=== PATIENT | female | born 1970 | race Caucasian/White ===

== ENCOUNTER 2019-12-31 11:56 | Emergency (ER) | payer OTHER, SELFPAY ==
[~2019-12-31 11:56] MED LIST: Iopamidol-370 76% 500 ML 1 ML ONE
[2019-12-31] MEDS ORDERED: Ketorolac Tromethamine 30 MG/ML VIAL ONE ×2 (12:26→14:04)
[2019-12-31] MEDS ORDERED: Ondansetron PF 4 MG/2 ML Vial ONE (12:28)
[2019-12-31 13:07] LABS: #Lymphocytes 0.6 thou/uL (1.20-3.40); #Monocytes 0.6 thou/uL (0.11-0.59); #Neutrophils 13.4 thou/uL (1.40-6.50); %Eosinophils 0.1 % (0.0-10.0); %Lymphocytes 3.8 % (21.0-51.0); %Monocytes 4.2 % (0.0-10.0); %Neutrophils 91.8 % (42.0-75.0); Hemoglobin 13.5 g/dL (12.0-16.0); Mean Corpuscular HGB CONC 32.3 g/dL (32.0-36.0); Mean Corpuscular Hemoglobin 30.2 pg (27.0-31.0); Mean Corpuscular Volume 93.5 fL (78.0-98.0); Mean Platelet Volume 7.3 fL (7.4-10.4); Platelet Count 225 thou/uL (130-400); RBC Distribution Width 11.4 % (11.5-14.5); Red Blood Cell (RBC) Count 4.46 mill/uL (4.20-5.40); White Blood Cell (WBC) Count 14.6 thou/uL (4.8-10.8)
[2019-12-31 13:19] LABS: BHCG - Serum Negative (NEGATIVE); Pregs Control Background? CLEAR/WHITE (CLR/WHITE); Pregs Control Bar Appear? YES (CONTROL BAR)
[2019-12-31 13:27] LABS: ALT (SGPT) 15 U/L (8-55); AST (SGOT) 14 U/L (5-34); Albumin 4.2 g/dL (3.5-5.0); Alkaline Phosphatase 73 U/L (40-110); Anion Gap 13 mmol/L (10-20); BUN (Urea Nitrogen) 9 mg/dL (7.0-18.7); Bilirubin, Total 0.5 mg/dL (0.2-1.2); CK (CPK) 92 U/L (29-168); Calc. Creatinine Clearance 0 mL/min (70-130); Calcium 8.5 mg/dL (7.8-10.44); Carbon Dioxide 22 mmol/L (22-29); Chloride 103 mmol/L (98-107); Estimated GFR-MDRD 85; Globulin 2.5 g/dL (2.4-3.5); Glucose 102 mg/dL (70-105); Lipase 10 U/L (8-78); Potassium 3.5 mmol/L (3.5-5.1); Protein, Total 6.7 g/dL (6.0-8.3); Sodium 134 mmol/L (136-145)
[2019-12-31 13:37] LABS: Bilirubin Negative (Negative); Blood, Urine Negative (Negative); Clarity Clear (Clear); Glucose, Urine (Dipstick) Normal (Negative); Ketone, Urine Negative (Negative); Leukocyte Negative Leu/uL (Negative); Nitrite Negative (Negative); Protein, Urine (Dipstick) 10 mg/dL (Neg-Trace); Specific Gravity, Urine 1.022 (1.002-1.036); Urobilinogen Normal mg/dL (Less than 2)
--- NOTE | 2019-12-31 14:57 | CT ---
CT ANGIOGRAM THORAX WITH IV CONTRAST AND 3-D RECONSTRUCTIONS CLINICAL INDICATION: Elevated d-dimer in a patient with chest pain. Pain between the shoulder blades. Numbness both arms. COMPARISON: None FINDINGS: Pulmonary arteries: No filling defects are seen in the pulmonary arteries to suggest a pulmonary embo tequila. Aorta: The aorta is normal in caliber without evidence of an aortic dissection. Lungs: There is a circumscribed lucency measuring 8 mm in the right upper lobe laterally with promine nt adjacent groundglass opacity. But are likely related to a pneumatocele with adjacent parenchymal lung changes possibly representing either hemorrhage or infectious process. Findings could be related to posttraumatic pneumatocele in the appropriate clinical setting versus infectious process with subsequent development of a small pneumatocele. Lungs are otherwise clear. Mediastinum: There is no evidence of lymphadenopathy. Thyroid gland: Right lobe of thyroid gland is not visualized and may be surgically absent. There is q uestion of a small subcentimeter hypodense nodule left lobe of the thyroid gland. Osseous structures: Mild left convex curvature thoracic spine. Chest wall: Bilateral breast prostheses are visualized. Upper abdomen: A 4.8 cm hypodense cystic structure medial segment left hepatic lobe incompletely imag ed likely due to large hepatic cyst. A nonobstructing superior pole left renal calculus is present. There are hypodense lesions scattered within the visualized left kidney largest in the superior pole measuring 1.1 cm suggestive of renal cysts. A few tiny subcentimeter too small to characterize hypodense lesions are present. IMPRESSION: 1. Subcentimeter circumscribed lucency with surrounding patchy airspace and groundglass density in th e right upper lobe. Findings could be related to post traumatic pneumatocele and surrounding hemorrhage in the appropriate clinical setting. However, findings could be related to postinfectious pneumatocele with surrounding opacity secondary to infectious process/pneumonia. 2. No CT evidence for pulmonary embolus. 4. No obstructing left renal calculus. 3. Large incompletely imaged left hepatic lobe cyst. 5. Hypodense lesions left kidney most suggestive of cysts.
[2019-12-31] MEDS ORDERED: Azithromycin 500 MG VIAL ONE (15:20)
--- NOTE | 2019-12-31 15:31 | RAD ---
EXAM: CHEST ONE VIEW PORTABLE: 12/31/19 HISTORY: Chest pain. FINDINGS: Heart size is normal. The left lung is clear. There is a faint opacity overlying the right anterior f irst and second rib interspace region possibly a small area of pneumonia or an underlying nodule. No pleural effusion. IMPRESSION: Evidence for minimal focal opacification over the right upper lateral chest between the first and sec ond anterior rib interspace, possibly a small patch of pneumonia or pulmonary nodule. If the patient has symptoms of pneumonia, I would suggest treatment and short term follow-up in several weeks and if this abnormal density persists at that time, a follow-up chest CT scan should be considered. POS: OFF
[2019-12-31] MEDS ORDERED: cefTRIAXone\\ROCEPHIN 2 GM VIAL ONE (15:42)
[2019-12-31] MEDS ORDERED: traMADol HCl 50 MG TAB ONE (16:10)
[2020-01-01 12:24] LABS: SARS-CoV-2 MS2 Positive; SARS-CoV-2 N Gene Negative; SARS-CoV-2 S Gene Negative; SARS-CoV-2 by NAA Not Detected (NotDetected); SARS-CoV-2 orf1ab Negative
== END 2019-12-31 17:27 | disposition home or self-care (01) ==
LOC: ERS 11:56
DX: J18.9 Pneumonia, unspecified organism (principal); R91.8 Other nonspecific abnormal finding of lung field; G35 Multiple sclerosis; R07.9 Chest pain, unspecified; Z20.828 Contact with and (suspected) exposure to other viral communicable diseases
CPT/HCPCS: 36415; 71045; 71275; 80053; 81003; 82550; 83605; 83690; 84484; 84703; 85025; 85379; 87040; 87077; 87149; 87186; 87635; 93005; 96365; 96366; 96368; 96375; 96376; J0456; J0696; J1885; J2405; Q9967; U0003

== ENCOUNTER 2020-01-03 15:26 | Inpatient (IN) | payer SELFPAY ==
[2020-01-03 16:13] LABS: #Eosinphils 0.1 thou/uL (0.0-0.7); #Lymphocytes 1.1 thou/uL (1.20-3.40); #Monocytes 1.1 thou/uL (0.11-0.59); #Neutrophils 13.8 thou/uL (1.40-6.50); %Basophils 0.2 % (0.0-1.0); %Eosinophils 0.9 % (0.0-10.0); %Lymphocytes 6.7 % (21.0-51.0); %Monocytes 6.5 % (0.0-10.0); %Neutrophils 85.7 % (42.0-75.0); Mean Corpuscular HGB CONC 32.8 g/dL (32.0-36.0); Mean Corpuscular Hemoglobin 30.7 pg (27.0-31.0); Mean Corpuscular Volume 93.5 fL (78.0-98.0); Mean Platelet Volume 7.3 fL (7.4-10.4); Platelet Count 289 thou/uL (130-400); RBC Distribution Width 11.4 % (11.5-14.5); Red Blood Cell (RBC) Count 3.92 mill/uL (4.20-5.40); White Blood Cell (WBC) Count 16.1 thou/uL (4.8-10.8)
[2020-01-03 16:33] LABS: ALT (SGPT) 39 U/L (8-55); AST (SGOT) 36 U/L (5-34); Albumin 3.4 g/dL (3.5-5.0); Alkaline Phosphatase 123 U/L (40-110); Anion Gap 12 mmol/L (10-20); BUN (Urea Nitrogen) 8 mg/dL (7.0-18.7); Bilirubin, Total 0.4 mg/dL (0.2-1.2); Calc. Creatinine Clearance 0 mL/min (70-130); Calcium 9.1 mg/dL (7.8-10.44); Carbon Dioxide 21 mmol/L (22-29); Chloride 108 mmol/L (98-107); Estimated GFR-MDRD Greater than 90; Globulin 2.9 g/dL (2.4-3.5); Glucose 105 mg/dL (70-105); Potassium 3.9 mmol/L (3.5-5.1); Protein, Total 6.3 g/dL (6.0-8.3); Sodium 137 mmol/L (136-145)
[2020-01-03] MEDS ORDERED: Meropenem 1 GM in Sodium Chloride 0.9% 100 ML IVPB SCH (18:00)
[2020-01-03] MEDS ORDERED: MEROPENEM 1 GM/50 ML 1 GM in Premix Bag 1 BAG IVPB SCH ×2 (18:15→22:00)
--- NOTE | 2020-01-03 18:31 | CT ---
CT ABDOMEN AND PELVIS WITH IV CONTRAST: 01/03/20 PROVIDED CLINICAL HISTORY: Nausea, bloating and abdominal pain. FINDINGS: No comparisons. There is mild right pleural fluid and patchy consolidation of the right lung base that may reflect vo lume loss or infiltrate. These findings appear new with respect to the CT examination of the chest da lesly 12/31/19. There is a large simple cyst involving the left hepatic lobe. There is a solid, enhancing mass involv ing the anterior segment of the right hepatic lobe measuring about 3.6 cm. Hypodensities are seen inv olving the kidneys, the larger of which are compatible with cysts and the smaller of which are too sm all to definitively characterize but likely also reflect cysts. There is a 3 mm nonobstructing superi or pole left renal calculus. The spleen, pancreas, and adrenal glands appear unremarkable. There is mild free pelvic fluid. Evaluation of the pelvis is limited due to fluid filled small bowel and lack of enteric contrast material. There is an approximately 6 cm cystic mass in the posterior pe lvis suspected seen to best advantage on axial image 74 and coronal image 76. There is no bowel dilatation, inflammatory fat stranding or free air apparent. There is conspicuous c olonic fecal retention. The gallbladder is decompressed. The appendix is not distinctly identified, w ithout secondary evidence for acute appendicitis. The osseous structures demonstrate no concerning lytic or blastic lesions. IMPRESSION: 1. Suspected 6 cm complex cystic pelvic mass. Correlation with pelvic ultrasound is recommended. 2. Mild free pelvic fluid. 3. 3.6 cm enhancing right hepatic lobe mass, incompletely characterized on the basis of this isa dy. Follow-up abdominal MRI is recommended for further characterization. 4. Partially visualized right pleural fluid and patchy right basilar air space disease, the latt er of which may reflect pneumonia. POS: LATOYA
--- NOTE | 2020-01-03 19:58 | RAD ---
PORTABLE CHEST: 01/03/20 PROVIDED CLINICAL HISTORY: Pneumonia. FINDINGS: Comparison 12/31/19. Cardiac and mediastinal silhouette is unchanged in appearance. There is prominent interval increase i n the degree of air space disease involving the right mid and upper lung zones with development of ri ght basilar air space disease. There is no pleural fluid or pneumothorax radiographically apparent. IMPRESSION: Prominent interval increase in right hemithoracic air space disease. POS: LATOYA
[2020-01-03] MEDS ORDERED: Acetaminophen 500 MG TAB ONE (20:15)
--- NOTE | 2020-01-03 20:19 | PDOC.HHP ---
Hospitalist HPI - History of Present Illness Cough History of Present Illness: Patient is a 49 year old female with PMH MS who presents to ED for positive blood cultures, pneumonia, cough. Patient presented here on thursday and was diagnosed with pneumonia, R cavitary lung lesion, she was discharged home and followed up today in pulmonary clinic. Patient was seen today by Dr Leary in pulmonary clinic, he noticed that patient had blood cultures drawn, 1/2 of which were positive for pseudomonas, patient referred to hospital. She reports symptoms about the same as before, complains of a productive cough which has turned bloody a few times.Here in ED, WBC 16, LFT somewhat elevated, she reported some upper abdomional pain so CT A/P performed and revealed 6cm complex cystic pelvic mass, free pelvic fluid, 3.6cm enhancing R hepatic lobe mass, R airspace disease observed, pelvic ultrasound and MRI abdomen recommended. CXR w/ increased R airspace disease BCX from 12/30 reviewed, 1/2 was P aeruginosa whipple susceptible. Due to extensive allergy history, patient given meropenem after new blood cultures collected, to be admitted for further workup. Hospitalist ROS - Review of Systems Constitutional: reports: weakness. denies: fever, chills, sweats, malaise, other Eyes: denies: pain, vision change, conjunctivae inflammation, eyelid inflammation, redness, other ENT: denies: ear pain, ear discharge, nose pain, nose discharge, nose congestion, mouth pain, mouth swelling, throat pain, throat swelling, other Respiratory: reports: cough, hemoptysis. denies: dry, shortness of breath, SOB with excertion, pleuritic pain, sputum, wheezing, other Cardiovascular: denies: chest pain, palpitations, orthopnea, paroxysmal noc. dyspnea, edema, light headedness, other Gastrointestinal: denies: nausea, vomiting, abdominal pain, diarrhea, constipation, melena, hematochezia, other Genitourinary: denies: dysuria, frequency, incontinence, hematuria, retention, other Musculoskeletal: denies: neck pain, shoulder pain, arm pain, back pain, hand pain, leg pain, foot pain, other Skin: denies: rash, lesions, hansa, bruising, other Neurological: denies: weakness, numbness, incoordination, change in speech, confusion, seizures, other All other systems reviewed; all pertinent +/- noted in HPI/Subj - Medication Medications: none Hospitalist History - Past Medical History Other Medical History: Venous insufficiency, multiple sclerosis - Past Surgical History Other Surgical History: thyroid surgery D&C hysterectomy tubal ligation and reversal - Family History Family History: reports: no pertinent history - Social History Smoking Status: Never smoker Alcohol: reports: None Drugs: reports: none - Exam General Appearance: NAD, awake alert Eye: PERRL, anicteric sclera ENT: normocephalic atraumatic, no oropharyngeal lesions, moist mucosa Neck: supple, symmetric, no JVD, no thyromegaly, no lymphadenopathy, no carotid bruit Heart: RRR, no murmur, no gallops, no rubs, normal peripheral pulses Respiratory - other findings: rales R sided upper more than lower, normal work of breathing Gastrointestinal: soft, non-distended, normal bowel sounds, no palpable masses, no hepatomegaly, no splenomegaly, no bruit Gastrointestinal - other findings: mild upper abdominal tenderness, no rebound or guarding Extremities: no cyanosis, no clubbing, no edema Skin: normal turgor, no lesions, no rashes Neurological: cranial nerve grossly intact, normal sensation to touch, no weakness, no focal deficits, no new deficit Musculoskeletal: normal tone, normal strength, no muscle wasting Psychiatric: normal affect, normal behavior, A&O x 3 Hospitalist Results - Labs Result Diagrams: 01/03/20 16:00 01/03/20 16:00 Lab results: WBC 16.1 thou/uL (4.8-10.8) H 01/03/20 16:00 Hgb 12.0 g/dL (12.0-16.0) 01/03/20 16:00 Hct 36.7 % (36.0-47.0) 01/03/20 16:00 MCV 93.5 fL (78.0-98.0) 01/03/20 16:00 Plt Count 289 thou/uL (130-400) 01/03/20 16:00 Neutrophils % 85.7 % (42.0-75.0) H 01/03/20 16:00 Sodium 137 mmol/L (136-145) 01/03/20 16:00 Potassium 3.9 mmol/L (3.5-5.1) 01/03/20 16:00 Chloride 108 mmol/L (98-107) H 01/03/20 16:00 Carbon Dioxide 21 mmol/L (22-29) L 01/03/20 16:00 BUN 8 mg/dL (7.0-18.7) 01/03/20 16:00 Creatinine 0.68 mg/dL (0.6-1.1) 01/03/20 16:00 Glucose 105 mg/dL (70-105) 01/03/20 16:00 Lactic Acid 0.8 mmol/L (0.5-2.2) 01/03/20 17:07 Calcium 9.1 mg/dL (7.8-10.44) 01/03/20 16:00 Total Bilirubin 0.4 mg/dL (0.2-1.2) 01/03/20 16:00 AST 36 U/L (5-34) H 01/03/20 16:00 ALT 39 U/L (8-55) 01/03/20 16:00 Alkaline Phosphatase 123 U/L (40-110) H 01/03/20 16:00 Serum Total Protein 6.3 g/dL (6.0-8.3) 01/03/20 16:00 Albumin 3.4 g/dL (3.5-5.0) L 01/03/20 16:00 Lipase Less than 4 U/L (8-78) L 01/03/20 15:57 Additional comment: VITAL SIGNS ThuJan 03, 2020 18:27 CRUZ Heath, Zeny BP: 118/83 Pulse: 96 Resp: 18 Temp: 99.7 (Oral) Pain: 4 O2 sat: 100 on (Room Air) Time: 01/03/2020 18:27. CT A/P IMPRESSION: 1. Suspected 6 cm complex cystic pelvic mass. Correlation with pelvic ultrasound is recommended. 2. Mild free pelvic fluid. 3. 3.6 cm enhancing right hepatic lobe mass, incompletely characterized on the basis of this isa dy. Follow-up abdominal MRI is recommended for further characterization. 4. Partially visualized right pleural fluid and patchy right basilar air space disease, the latt er of which may reflect pneumonia. POS: JMT labs, imaging reports, ed documentation reviewed Hospitalist H&P A/P - Plan Plan: Patient is a 49 year old female with PMH MS who presents to ED for positive blood cultures, pneumonia, cough. # community acquired cavitary pneumonia # sepsis secondary to pseudomonal bacteremia Patient presented here on thursday and was diagnosed with pneumonia, R cavitary lung lesion, followed up today in pulmonary clinic w/ Dr Leary, 04/14 BCX positive for pseudomonas, patient referred to hospital. Symptoms stable. WBC 16, LFT somewhat elevated, she reported some upper abdomional pain so CT A/P performed and revealed 6cm complex cystic pelvic mass, free pelvic fluid, 3.6cm enhancing R hepatic lobe mass, R airspace disease observed, pelvic ultrasound and MRI abdomen recommended. Was on azithromycin since 12/30 as outpatient - admit to floor - consult pulmonary, infectious diseases - BCX from 12/30 reviewed, 04/14 P aeruginosa whipple susceptible - continue meropenem, follow new blood cultures, allergy history noted # liver mass - MRI liver recommended as outpatient, refer at discharge # cystic pelvic mass - pelvic ultrasound with patient, recommended as outpatient, refer at discharge - both masses discussed with patient, offered inpatient workup but she prefers to wait till discharged, will need referrals # history of MS - noted, not on home medications, no significant long-term iss ues DVT/GI ppx Full code
--- NOTE | 2020-01-03 20:39 | HP ---
SUBJECTIVE: She is a 49-year-old female, who was seen in the office, referred by the ER for abnormal x-ray and CT of the chest. History is that she has had longstanding history of diagnosis of multiple sclerosis. For at least a year and a half, she has been having some shoulder pain, in fact she saw some pain physician in [place], was given some kind of shots without any relief. About a week ago, she developed further worsening of her shoulder pain, also some cough. In the ER, she coughed up some blood. X-ray was taken which shows a right upper lung infiltrate. CAT scan showed a cavitary infiltrate and she was referred here. She has had no further episode of hemoptysis. The shoulder pain is still persistent. She is still having body aches and pains. I was told in the ER she was given a shot of Rocephin. She was watched and given Zithromax. Today in the office, we checked the computer results. She has Pseudomonas aeruginosa in the blood culture, which is sensitive to pretty much all antibiotics. Additionally, she has multiple allergies. Her white count in the ER was 14,000 with a slight left shift. Lytes were normal. The patient is nonsmoker. No prior history of TB, pneumonia, or bronchial asthma. PAST MEDICAL HISTORY: Mainly associated with multiple sclerosis with mainly encephalopathy, unsteady gait from time to time. She sees a Dr. Sin in [place]. She takes no chronic medication. ALLERGIES: MULTIPLE; PENICILLIN, KEFLEX, VANCOMYCIN, LEVAQUIN, MORPHINE, HYDROCODONE. SHE TELLS ME MOST OF THE ANTIBIOTICS HAVE CAUSED A RASH. PREVIOUS SURGERIES: Appendix, tubal ligation, bilateral augmentation of breast, D and C, hysterectomy, thyroid surgery, oophorectomy. SOCIAL HISTORY: Unremarkable. 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 REVIEW OF SYSTEMS: Otherwise 10-points negative. PHYSICAL EXAMINATION: VITAL SIGNS: Sats 97% on room air , pulse 80, blood pressure CHEST: Reveals no wheezing, no crackles. CARDIAC: Normal S1, S2. No gallops. IMPRESSION: 1. Right upper lung cavitary infiltrate. 2. Pseudomonas aeruginosa. 3. History of multiple sclerosis, on no medications. I was concerned about the Pseudomonas in the blood. She has been admitted to the hospital for sepsis syndrome. We will repeat sputum culture, echocardiogram. Started meropenem and supportive care. Regarding the CT, chest x-ray abnormality, we will follow up with surveillance x-rays and a CT. Job ID: [id number]
[2020-01-03] MEDS ORDERED: cloNIDine 0.1 MG TAB PO PRN (21:14)
[2020-01-03] MEDS ORDERED: Labetalol HCl 100 MG/20 ML VIAL SLOW IVP PRN (21:14)
[2020-01-03] MEDS ORDERED: Ondansetron PF 4 MG/2 ML Vial IVP PRN (21:14)
[2020-01-03] MEDS ORDERED: hydrALAZINE 20 MG/ML VIAL SLOW IVP PRN (21:14)
[2020-01-03] MEDS ORDERED: Promethazine HCl 12.5 MG in Sodium Chloride 0.9% 50 ML IVPB PRN (21:14)
[2020-01-03] MEDS ORDERED: Electrolyte Replacement Protocol FS SCH (21:15)
[2020-01-04] MEDS: MEROPENEM 1 GM/50 ML 1 GM in Premix Bag 1 BAG IVPB SCH ×4 (00:07→23:48)
[2020-01-04 01:10] LABS: Bacteria/HPF None Seen HPF (None Seen); Bilirubin Negative (Negative); Blood, Urine 1+ (Negative); Clarity Clear (Clear); Glucose, Urine (Dipstick) Normal (Negative); Ketone, Urine Negative (Negative); Leukocyte Negative Leu/uL (Negative); Nitrite Negative (Negative); Protein, Urine (Dipstick) Negative (Neg-Trace); RBC/HPF 0-3 HPF (0-3); Specific Gravity, Urine 1.013 (1.002-1.036); Squamous Epithelial None Seen HPF (0-3); Urobilinogen Normal mg/dL (Less than 2); WBC/HPF 0-3 HPF (0-3)
[2020-01-04 06:00] LABS: #Eosinphils 0.2 thou/uL (0.0-0.7); #Lymphocytes 1.1 thou/uL (1.20-3.40); #Monocytes 0.8 thou/uL (0.11-0.59); #Neutrophils 9.7 thou/uL (1.40-6.50); %Basophils 0.1 % (0.0-1.0); %Eosinophils 1.5 % (0.0-10.0); %Monocytes 6.9 % (0.0-10.0); %Neutrophils 82.6 % (42.0-75.0); Hemoglobin 10.2 g/dL (12.0-16.0); Mean Corpuscular HGB CONC 31.4 g/dL (32.0-36.0); Mean Corpuscular Hemoglobin 29.1 pg (27.0-31.0); Mean Corpuscular Volume 92.7 fL (78.0-98.0); Mean Platelet Volume 7.2 fL (7.4-10.4); Platelet Count 237 thou/uL (130-400); RBC Distribution Width 11.5 % (11.5-14.5); White Blood Cell (WBC) Count 11.8 thou/uL (4.8-10.8)
[2020-01-04 06:17] LABS: Anion Gap 11 mmol/L (10-20); BUN (Urea Nitrogen) 7 mg/dL (7.0-18.7); Calc. Creatinine Clearance 6 mL/min (70-130); Calcium 7.9 mg/dL (7.8-10.44); Carbon Dioxide 19 mmol/L (22-29); Chloride 109 mmol/L (98-107); Estimated GFR-MDRD Greater than 90; Glucose 135 mg/dL (70-105); Magnesium 1.7 mg/dL (1.6-2.6); Potassium 3.5 mmol/L (3.5-5.1); Sodium 135 mmol/L (136-145)
[2020-01-04] MEDS: Acetaminophen 325 MG TAB PO PRN ×2 (06:56→14:24)
[2020-01-04] MEDS ORDERED: Magnesium 2 GM/50 ML 2 GM in Premix Bag 1 BAG IVPB SCH ×2 (07:00→08:45)
[2020-01-04] MEDS ORDERED: Potassium Chloride 20 MEQ TAB PO SCH (07:15)
[2020-01-04] MEDS: Polyethylene Glycol 3350 17 GM Packet PO SCH (08:44)
[2020-01-04] MEDS ORDERED: Famotidine 20 MG TAB PO SCH (09:00)
--- NOTE | 2020-01-04 12:17 | PRG ---
DATE OF SERVICE: 01/04/2020 SUBJECTIVE: This morning, she is awake, alert, and responsive. Denies shortness of breath. OBJECTIVE: VITAL SIGNS: Temperature 99, pulse 80, respiratory rate 20, sats 96% on room air, blood pressure 108/57. CHEST: Decreased breath sounds in right lung, left lung is unremarkable. CARDIAC: Normal S1, S2. No gallops. ABDOMEN: No masses. LABORATORY DATA: White count 11,000, H and H 10 and 32, platelet count is normal. Electrolytes are normal. Liver function slightly elevated, AST of 36. Urine is negative. Blood cultures so far negative. X-ray shows persistent right upper lung infiltrate. CT of abdomen was done because of abdominal pain, which showed a 6-cm complex cystic mass, small pelvic free fluid, 3.6 cm right hepatic lobe mass, and small pleural effusion. ASSESSMENT AND PLAN: Pseudomonas sepsis, right lung pneumonia, history of multiple sclerosis. Meropenem antibiotic has been initiated. Continue supportive care, PT, sputum being cultured. Await report of additional cultures. Job ID: [id number]
[2020-01-04] MEDS ORDERED: Naproxen 500 MG TAB PO PRN ×2 (15:18→15:23)
--- NOTE | 2020-01-04 15:22 | PDOC.HOSPP ---
- Subjective Encounter Date: 01/04/20 Subjective: The patient is complaining of cough, right shoulder pain, shortness of breath. - Objective Vital Signs & Weight: Vital Signs (12 hours) Temp Pulse Resp BP Pulse Ox 01/04/20 14:10 101.6 F H 01/04/20 11:48 98.5 F 92 20 110/74 98 01/04/20 07:56 99.6 F 88 20 108/57 L 96 01/04/20 05:00 99.7 F H 93 18 106/67 96 Weight Weight 142 lb I&O: 01/03/20 01/04/20 01/05/20 06:59 06:59 06:59 Intake Total 1750 295 Output Total 650 150 Balance 1100 145 Result Diagrams: 01/04/20 05:43 01/04/20 05:43 Hospitalist ROS - Medication Medications: Active Medications Generic Name Dose Route Start Last Admin Trade Name Freq PRN Reason Stop Dose Admin Acetaminophen 650 mg 01/03/20 21:14 01/04/20 14:24 Acetaminophen 325 Mg Tab PO 650 mg Q4H PRN Administration Headache/Fever/Mild Pain (1-3) Famotidine 20 mg 01/04/20 09:00 01/04/20 08:45 Famotidine 20 Mg Tab PO 20 mg BID HEMANT Administration Meropenem 1 gm/ Device 50 mls @ 100 mls/hr 01/03/20 23:59 01/04/20 09:04 IVPB 50 mls [id number] HEMANT Administration Polyethylene Glycol 17 gm 01/04/20 09:00 01/04/20 08:44 Polyethylene Glycol 3350 17 Gm Packet PO 17 gm DAILY HEMANT Administration Sodium Chloride 10 ml 01/04/20 09:00 01/04/20 08:45 Flush - Normal Saline 10 Ml Syringe IVF 10 ml Q12HR HEMANT Administration - Exam General Appearance: awake alert Neck: supple, no JVD Respiratory: no tachypnea, normal percussion Neurological: cranial nerve grossly intact, no new deficit Hosp A/P (1) Sepsis Code(s): A41.9 - SEPSIS, UNSPECIFIED ORGANISM Status: Acute (2) Cavitary pneumonia Code(s): J18.9 - PNEUMONIA, UNSPECIFIED ORGANISM; J98.4 - OTHER DISORDERS OF LUNG Status: Acute (3) Pseudomonas infection Code(s): A49.8 - OTHER BACTERIAL INFECTIONS OF UNSPECIFIED SITE Status: Acute (4) Multiple sclerosis Code(s): G35 - MULTIPLE SCLEROSIS Status: Acute - Plan Sepsis due to Pseudomonas cavitary pneumonia present on admission. Patient is currently on meropenem. Leukocytosis improving. She remains febrile. Continue IV hydration.
[2020-01-04 15:54] LABS: Potassium 3.7 mmol/L (3.5-5.1)
[2020-01-04] MEDS: Sodium Chloride 0.9% 1,000 ML IV SCH (16:03)
[2020-01-04] MEDS: Enoxaparin Sodium 40 MG/0.4 ML SYRINGE SC SCH (20:38)
[2020-01-04] MEDS: Cefepime 2 GM in Sodium Chloride 0.9% 100 ML IVPB SCH (20:39)
--- NOTE | 2020-01-05 | CON ---
DATE OF CONSULTATION: 01/04/2020 REASON: Pneumonia with bacteremia. HISTORY OF PRESENT ILLNESS: A 49-year-old, who has a history of multiple sclerosis, who is managed in [place] for the past few years. She received Copaxone and Betaseron, I think, but she has been fairly stable with mostly cognitive issues. No visual problems. She has some numbness and tingling in the extremities. No major urinary problems. A little bit of infections, but not very frequent. She also has cervical spine issues and has had injections by a pain specialist with corticosteroids. The last injection was in September. She also has recently had a dental infection for which antimicrobials were prescribed,3 or 4 weeks ago, and then 5 days before this admission, she develops acute illness with chills, general malaise, myalgias, comes to the emergency room and has an identifiable infiltrate with a central cavitation lesion. She was initially treated as just a simple community-acquired pneumonia, but blood cultures yielded Pseudomonas aeruginosa, she was brought back and admitted. She is still feeling unwell, but does not have as much pain as before or chills. No headaches. No visual symptoms, sore throat, odynophagia, or dysphagia. She started coughing after admission with hemoptysis actually. No back pain other than her usual C-spine pain, and she has this pain in the right shoulder blade, medial aspect, which is chronic. No abdominal pain, although now she has some abdominal symptoms. It is not clear what the nature of those are; it is kind of nonspecific, but centered in the periumbilical region and a sensation of fullness that she has, and it could be related to antimicrobial therapy. No genitourinary symptoms. No joint symptoms. No skin disorder. MEDICAL HISTORY: Multiple sclerosis with prior treatment with Copaxone and Betaseron, has not received treatment in a while because of the clinical stability. She has chronic back pain with steroid injections intermittently. Last was in September. She had a dental abscess, which was treated with antimicrobials 3 or 4 weeks ago, history of venous insufficiency and hypothyroidism. PAST SURGICAL HISTORY: Had hysterectomy and tubal ligation with reversal. SOCIAL HISTORY: Lives in [place] with . Never a smoker. No alcoholic beverage use. ALLERGIES: SHE HAS A HISTORY OF ALLERGIES WHEN SHE WAS A CHILD, PENICILLIN, AND CEPHALOSPORIN. SHE DOES NOT EVEN REMEMBER WHAT IT WAS, AND THEN MORE RECENTLY, SHE HAD LEVAQUIN AND VANCOMYCIN ALLERGY, WHICH WAS IMMEDIATE AND ASSOCIATED WITH RASH. SHE ALSO HAS A HISTORY OF HYDROCODONE ALLERGY AND DILAUDID ALLERGY. CURRENT MEDICATIONS: Include: 1. Albuterol. 2. Enoxaparin. 3. Meropenem. 4. Naproxen. 5. Ondansetron. 6. Promethazine. PHYSICAL EXAMINATION: VITAL SIGNS: T-max 101.6, BP 110/64, pulse 91, respirations 20. SKIN: Normal. There is no lymphadenopathy. HEENT: Ocular movements conjugate. Nasal passages patent. Oral cavity normal. Teeth in good shape. NECK: Supple. LUNGS: Diminished breath sounds on the right side. A few crackles. No wheezing. HEART: S1, S2. Regular rate without murmurs. No S3 or S4. ABDOMEN: Soft, nondistended, nontender. No ascites. No bladder distention. EXTREMITIES: No joint inflammatory activity. Moves extremities equally. LABORATORY DATA: White cell count of 16,000 down to 11.8, hemoglobin 12 and 10, platelets 289, 85% neutrophils. Sodium 135, creatinine 0.69. AST 36, ALT 39, alkaline phosphatase 123. Urinalysis normal. Microbiology with one set of blood cultures with Pseudomonas aeruginosa with a broad susceptibility profile. Urine culture, no growth 12 hours; blood cultures here in the hospital on the , no growth. IMAGING DATA: Showed the abdomen and pelvis CT with a 6 cm cystic pelvic mass. She has a 3.6 cm enhancing right hepatic lobe mass, incompletely characterized. There is right pleural fluid and patchy right basilar airspace disease. There is a right upper lobe cavitary lesion with infiltrate surrounding it as well. ASSESSMENT: 1. Multiple sclerosis, previously on Copaxone and Betaseron, but has not been on treatment for a while. 2. Use of corticosteroids in the past for management of cervical spine disease injections by pain doctor. 3. Recent tooth abscess, which was managed with oral antimicrobials about 3-4 weeks before this illness. 4. Reported allergy to various antimicrobials, but the cephalosporin and penicillin allergies are in the distant past and likely not meaningful. Most of, 99% of those patients, upon rechallenge, do not have any problems with tolerance. DISCUSSION: The patient probably aspirated from oral cavity (microaspiration at night time) and the intake of antimicrobials a few weeks before may have led to the colonization by Pseudomonas and then aspiration of the organism. The liver lesion needs to be clarified, though she has a pelvic mass too; in patients with community-acquired Pseudomonas infections have been found to have solid tumors in some instances , so those abnormalities need to be followed up. Pseudomonas aeruginosa is reliably treated with cefepime and Zosyn, less so with carbapenems due to development of porin-related decrease in permeability to the drug, so clinical failures may occur in the middle of treatment. We will go ahead and switch her to cefepime. Continue treatment. She is at risk for development of a complicated pleural effusion. We will need to follow up her chest x-ray to make sure that is not the case. If she continues to have fever, then that will be the major concern. It is unlikely that the liver lesion represents a hematogenous spread to the liver. Job ID: [id number] [id number]
[2020-01-05] MEDS: Acetaminophen 325 MG TAB PO PRN ×2 (02:10→16:37)
[2020-01-05] MEDS: Sodium Chloride 0.9% 1,000 ML IV SCH ×2 (06:09→22:38)
[2020-01-05] MEDS ORDERED: Magnesium 2 GM/50 ML 2 GM in Premix Bag 1 BAG IVPB SCH (07:00)
[2020-01-05] MEDS ORDERED: Pantoprazole 40 MG GRANULES PACKET PO SCH (09:00)
[2020-01-05] MEDS: MEROPENEM 1 GM/50 ML 1 GM in Premix Bag 1 BAG IVPB SCH (09:12)
[2020-01-05] MEDS: Guaifenesin DM 100-10/5 ML UDCUP PO PRN (09:14)
[2020-01-05] MEDS: Polyethylene Glycol 3350 17 GM Packet PO SCH (09:17)
[2020-01-05] MEDS: Cefepime 2 GM in Sodium Chloride 0.9% 100 ML IVPB SCH ×2 (09:49→21:30)
--- NOTE | 2020-01-05 10:24 | PRG ---
DATE OF SERVICE: 01/05/2020 SUBJECTIVE: Elaine Christine this morning is awake, alert, and responsive. She is still somewhat nauseated. OBJECTIVE: VITAL SIGNS: Temperature 97, pulse 76, sats 97% on room air, and blood pressure 100/70. CHEST: No wheezing. No crackles. CARDIAC: Normal S1, S2. No gallops. ABDOMEN: No masses. ASSESSMENT: Pseudomonas sepsis, right lung pneumonia, multiple sclerosis. PLAN: She remains afebrile cultures are negative. She is on meropenem and Maxipime to coverage for Pseudomonas probably arising from the right upper lung. PLAN: Continue PT, supportive care. We will follow. Job ID: [id number]
--- NOTE | 2020-01-05 12:51 | PDOC.HOSPP ---
- Subjective Encounter Date: 01/05/20 Subjective: C/O Lower abdominal pain. - Objective Vital Signs & Weight: Vital Signs (12 hours) Temp Pulse Resp BP Pulse Ox 01/05/20 12:00 99.4 F 84 20 116/68 96 01/05/20 08:16 97.9 F 80 16 102/70 97 01/05/20 04:49 98.3 F 75 18 116/62 95 01/05/20 02:10 99.4 F 94 22 H 95 Weight Weight 142 lb I&O: 01/04/20 01/05/20 01/06/20 06:59 06:59 06:59 Intake Total 1750 1329 Output Total 650 150 Balance 1100 1179 Result Diagrams: 01/04/20 05:43 01/04/20 15:24 Hospitalist ROS - Medication Medications: Active Medications Generic Name Dose Route Start Last Admin Trade Name Freq PRN Reason Stop Dose Admin Acetaminophen 650 mg 01/03/20 21:14 01/05/20 02:10 Acetaminophen 325 Mg Tab PO 650 mg Q4H PRN Administration Headache/Fever/Mild Pain (1-3) Enoxaparin Sodium 40 mg 01/04/20 21:00 01/04/20 20:38 Enoxaparin Sodium 40 Mg/0.4 Ml Syringe SC 40 mg 2100 HEMANT Administration Guaifenesin/Dextromethorphan 15 ml 01/03/20 21:14 01/05/20 09:14 Guaifenesin Dm 100-10/5 Ml Udcup PO 15 ml Q4H PRN Administration Cough Sodium Chloride 1,000 mls @ 75 mls/hr 01/04/20 15:30 01/05/20 06:09 Normal Saline 0.9% IV Not Given .[id number] HEMANT Cefepime HCl 2 gm/ Sodium 100 mls @ 200 mls/hr 01/04/20 21:00 01/05/20 09:49 Chloride IVPB 100 mls Q12HR HEMANT Administration Naproxen 500 mg 01/04/20 15:23 01/04/20 16:28 Naproxen 500 Mg Tab PO 500 mg BIDPRN PRN Administration Moderate to Severe Pain (6-10) Pantoprazole Sodium 40 mg 01/05/20 09:00 01/05/20 09:12 Pantoprazole 40 Mg Tab PO 40 mg DAILY HEMANT Administration Polyethylene Glycol 17 gm 01/04/20 09:00 01/05/20 09:17 Polyethylene Glycol 3350 17 Gm Packet PO Not Given DAILY HEMANT Sodium Chloride 10 ml 01/04/20 09:00 01/05/20 09:17 Flush - Normal Saline 10 Ml Syringe IVF Not Given Q12HR HEMANT Sodium Chloride 10 ml 01/03/20 21:45 01/04/20 16:03 Flush - Normal Saline 10 Ml Syringe IVF 10 ml PRN PRN Administration Saline Flush - Exam General Appearance: awake alert ENT: normocephalic atraumatic Neck: supple, no JVD Respiratory: normal chest expansion, no tachypnea Gastrointestinal: soft, non-distended, tender to palpation Neurological: cranial nerve grossly intact, no weakness Hosp A/P (1) Sepsis Code(s): A41.9 - SEPSIS, UNSPECIFIED ORGANISM Status: Acute (2) Cavitary pneumonia Code(s): J18.9 - PNEUMONIA, UNSPECIFIED ORGANISM; J98.4 - OTHER DISORDERS OF LUNG Status: Acute (3) Pseudomonas infection Code(s): A49.8 - OTHER BACTERIAL INFECTIONS OF UNSPECIFIED SITE Status: Acute (4) Multiple sclerosis Code(s): G35 - MULTIPLE SCLEROSIS Status: Acute (5) Pelvic mass Code(s): R19.00 - INTRA-ABD AND PELVIC SWELLING, MASS AND LUMP, UNSP SITE Status: Acute (6) Liver mass Code(s): R16.0 - HEPATOMEGALY, NOT ELSEWHERE CLASSIFIED Status: Acute - Plan Sepsis due to Pseudomonas cavitary pneumonia present on admission. Meropenem discontinued and Cefepeime started per ID recommendations. Leukocytosis improving. Complex pelvic mass and liver mass. Consulted VEHICLE GLASS TECHNICIAN.
--- NOTE | 2020-01-05 17:45 | ULT ---
TRANSABDOMINAL AND TRANSVAGINAL PELVIC ULTRASOUND WITH DOPPLER: 01/05/20 PROVIDED CLINICAL HISTORY: Adnexal mass on CT. FINDINGS: Comparison is made with the CT examination dated 01/03/20. The uterus and right ovary are not visualiz ed, compatible with the patient's surgical history of hysterectomy and right oophorectomy. The left ovary measures approximately 5.1 x 5.2 x 5.4 cm. There are three cystic masses involving the left ovary. One of these cystic structures appears well marginated and anechoic measuring 3 cm. One of these masses appears hyperechoic and demonstrates a thin internal septation. The other mass appear s hypoechoic with numerous fine internal septations typical for hemorrhagic cyst. There is free pelvic fluid demonstrated. Color Doppler and spectral analysis of the left ovarian wave form demonstrates normal flow. IMPRESSION: 1. Findings favoring complex physiologic cysts involving the left ovary. Sonographic follow-up i s recommended to evaluate for resolution. 2. Nonspecific free pelvic fluid. POS: LATOYA
--- NOTE | 2020-01-05 20:25 | CON ---
DATE OF CONSULTATION: 01/05/2020 TIME OF SERVICE: 1930 hours. ADMITTING PHYSICIAN: Benjy Neal MD CONSULTING PHYSICIAN: Pedrito Tolentino MD REASON FOR CONSULTATION: Left adnexal mass. HISTORY OF PRESENT ILLNESS: Ms. Christine is a 49-year-old 3, para 3, status post hysterectomy, status post right salpingo-oophorectomy, who is admitted with pneumonia and liver mass. She has been seen by the Internal Medicine hospitalist group as well as Dr. Oneal and Dr. Leary. She is felt to have a community-acquired pneumonia with a liver mass of uncertain etiology. CT scan also revealed a left adnexal mass. FINANCIAL ADMINISTRATIVE ASSISTANT HISTORY: Hysterectomy for menorrhagia, right salpingo-oophorectomy for benign cyst with torsion. A long history of bilateral simple ovarian cyst without malignancy on each side. PAST MEDICAL HISTORY: Significant for multiple sclerosis and Pseudomonas. Positive blood culture with pneumonia. PAST SURGICAL HISTORY: Appendectomy, bilateral breast augmentation, hysterectomy, right salpingo-oophorectomy, and thyroid surgery. ALLERGIES: PENICILLIN AND CEPHALOSPORIN A CHILD, NONE RECENTLY. MEDICATIONS ON ADMISSION: Include albuterol, the patient has been placed on Lovenox and meropenem during hospitalization. SOCIAL HISTORY: Denies tobacco, alcohol, or drug use. FAMILY HISTORY: Noncontributory. REVIEW OF SYSTEMS: Noncontributory. Of note, the patient reports that her pain is more in right upper quadrant and refers to her shoulder. She states that her pain does radiate to her abdomen somewhat, but it is much higher than with her previous ovarian cyst on the right. PHYSICAL EXAMINATION: VITAL SIGNS: Temperature 99.3, pulse 87, respirations 22, blood pressure 109/60, T-max 101.1. : Limited exam reveals an abdomen that is soft and nontender without rebound or guarding. No fluid wave. No palpable pelvic masses noted. Vulva is without lesions. Bimanual exam is deferred. EXTREMITIES: Without clubbing, cyanosis, or edema. DIAGNOSTIC DATA: Pelvic ultrasound was performed to more accurately assess the left adnexal mass. It was read as a physiological cyst of the left ovary measuring 5.5 cm in greatest diameter of the ovary with the greatest cyst size being 5 cm. There are slight internal echoes but nothing worrisome for malignancy and a small amount of free pelvic fluid. CA-125 was ordered and is pending. IMPRESSION: Left adnexal mass in the patient with other multiple medical conditions including acute Pseudomonas pneumoniae. Ultrasound and complaints seemed to be favor physiological benign ovarian cyst. No evidence of torsion. Hematologic seeding of left ovary by Pseudomonas would be extraordinarily rare and would be anticipated to have more symptomatology. PLAN: We will follow from distance. We will follow up CA-125. If greater than 35, we would consider further evaluation of adnexal mass. Consider surgical management. Job ID: [id number]
[2020-01-05] MEDS: Enoxaparin Sodium 40 MG/0.4 ML SYRINGE SC SCH (21:30)
--- NOTE | 2020-01-06 07:40 | PRG ---
DATE OF SERVICE: 01/06/2020 Ms. Christine is resting comfortably this morning. This is followup on her CD 125. Level came back at 38. This is mildly elevated over what would be expected. It is not as high as would typically be seen with ovarian malignancy, but could represent a borderline ovarian malignancy, most likely represents endometriosis or other benign inflammatory process of the remaining adnexa. The patient reports that she had a history of adenomyosis/endometriosis with her uterus and other ovary. Considering the ovarian cyst, noncorrelation with the patient's discomfort, pain, and pneumonia, would suggest follow up with repeat CA-125 at [facility] with myself in 1 to 2 months. Please schedule this for the patient upon discharge. Job ID: [id number]
[2020-01-06] MEDS: Cefepime 2 GM in Sodium Chloride 0.9% 100 ML IVPB SCH ×2 (08:14→21:18)
[2020-01-06] MEDS: Polyethylene Glycol 3350 17 GM Packet PO SCH (08:16)
[2020-01-06 08:48] LABS: #Eosinphils 0.5 thou/uL (0.0-0.7); #Lymphocytes 1.8 thou/uL (1.20-3.40); #Monocytes 0.9 thou/uL (0.11-0.59); #Neutrophils 7.9 thou/uL (1.40-6.50); %Basophils 0.4 % (0.0-1.0); %Eosinophils 4.7 % (0.0-10.0); %Lymphocytes 15.8 % (21.0-51.0); %Monocytes 8.3 % (0.0-10.0); %Neutrophils 70.7 % (42.0-75.0); Hemoglobin 11.9 g/dL (12.0-16.0); Mean Corpuscular HGB CONC 32.4 g/dL (32.0-36.0); Mean Corpuscular Hemoglobin 30.6 pg (27.0-31.0); Mean Corpuscular Volume 94.3 fL (78.0-98.0); Mean Platelet Volume 6.7 fL (7.4-10.4); Platelet Count 384 thou/uL (130-400); RBC Distribution Width 11.9 % (11.5-14.5); White Blood Cell (WBC) Count 11.2 thou/uL (4.8-10.8)
[2020-01-06] MEDS: Acetaminophen 325 MG TAB PO PRN ×2 (08:49→20:03)
[2020-01-06] MEDS: Sodium Chloride 0.9% 1,000 ML IV SCH (09:03)
[2020-01-06 09:07] LABS: Anion Gap 13 mmol/L (10-20); BUN (Urea Nitrogen) 6 mg/dL (7.0-18.7); Calc. Creatinine Clearance 111 mL/min (70-130); Calcium 8.6 mg/dL (7.8-10.44); Carbon Dioxide 23 mmol/L (22-29); Chloride 105 mmol/L (98-107); Estimated GFR-MDRD Greater than 90; Glucose 96 mg/dL (70-105); Potassium 3.9 mmol/L (3.5-5.1); Sodium 137 mmol/L (136-145)
--- NOTE | 2020-01-06 09:35 | PRG ---
DATE OF SERVICE: 01/06/2020 OBJECTIVE: VITAL SIGNS: This morning, her temperature 98.7, pulse 92, respiratory rate 20, sats 100% on room air, blood pressure 120/62. She got a cough, nonproductive. No chills or sweats. CHEST: Decreased breath sounds in right lung, left unremarkable. CARDIAC: Normal S1, S2. No gallops. ABDOMEN: No masses. LABORATORY DATA: White blood cell count 11,000. ASSESSMENT: Right lung pneumonia, Pseudomonas sepsis. Repeat cultures negative, on double antibiotics Maxipime and Levaquin. Still persistent fever, baseline multiple sclerosis. Her meropenem was discontinued by Infectious Disease. She is only on Maxipime right now. I am going to repeat a chest x-ray to reassess her pulmonary status. We will follow. Job ID: [id number]
--- NOTE | 2020-01-06 13:11 | PRG ---
DATE OF SERVICE: 01/06/2020 SUBJECTIVE: Feeling better. Still intermittent cough, but no sputum production. A little bit of chest pain anteriorly when she takes a deep breath in the upper lobe, right side. No abdominal pain. No diarrhea. No genitourinary symptoms. No joint symptoms. OBJECTIVE: VITAL SIGNS: T-max 100.1 yesterday at 4 p.m., 99.7 today at 7 a.m. Other vital signs are normal. O2 saturations are good. GENERAL: She is in no distress, oriented, alert. LUNGS: With improvement in breath sounds on the right side. Fairly symmetric breath sounds. HEART: S1 and S2, regular rate. ABDOMEN: Soft, not distended. EXTREMITIES: Moves all extremities equally. LABORATORY DATA: White cell count is at 11.2, hemoglobin 11.9, platelets 384. Creatinine 0.63. Blood cultures, no growth at 48 hours, the repeat ones. Pelvic ultrasound reveals that cystic mass, which appears to be benign in nature. ASSESSMENT AND DISCUSSION: Multiple sclerosis, previously on Copaxone and Betaseron, not on treatment for a while. Use of corticosteroids in the past for management of cervical spinal disease; recent tooth abscess, managed with oral antimicrobials; allergy to various antimicrobials including levofloxacin. The levofloxacin allergy is unlikely to be a hypersensitivity reaction just at the site of injection and she did not have any other symptoms elsewhere. It appears to be a more localized reaction to the injection of the product, may be chemical phlebitis. I think going forward she could be challenged with oral Cipro before discharge and if she tolerates, she could potentially be transitioned to oral Cipro to complete treatment course. Follow up chest x-ray. The duration of therapy according to guidelines is anywhere from 21 to 42 days. It is variable and basically treatment continued until biomarkers normalize, so at least 3 weeks of therapy. Job ID: [id number]
--- NOTE | 2020-01-06 15:25 | PDOC.HOSPP ---
- Subjective Encounter Date: 01/06/20 Subjective: The patient's shortness of breath is improving. - Objective Vital Signs & Weight: Vital Signs (12 hours) Temp Pulse Resp BP Pulse Ox 01/06/20 11:41 98.8 F 81 20 105/61 98 01/06/20 07:41 99.7 F H 90 20 112/62 96 01/06/20 05:14 99.6 F 84 18 107/64 96 Weight Weight 142 lb I&O: 01/05/20 01/06/20 01/07/20 06:59 06:59 06:59 Intake Total 1329 882 Output Total 150 1680 Balance 1179 -658 Result Diagrams: 01/06/20 08:35 01/06/20 08:35 Hospitalist ROS - Medication Medications: Active Medications Generic Name Dose Route Start Last Admin Trade Name Freq PRN Reason Stop Dose Admin Acetaminophen 650 mg 01/03/20 21:14 01/06/20 08:49 Acetaminophen 325 Mg Tab PO 650 mg Q4H PRN Administration Headache/Fever/Mild Pain (1-3) Enoxaparin Sodium 40 mg 01/04/20 21:00 01/05/20 21:30 Enoxaparin Sodium 40 Mg/0.4 Ml Syringe SC 40 mg 2100 HEMANT Administration Guaifenesin/Dextromethorphan 15 ml 01/03/20 21:14 01/05/20 09:14 Guaifenesin Dm 100-10/5 Ml Udcup PO 15 ml Q4H PRN Administration Cough Sodium Chloride 1,000 mls @ 75 mls/hr 01/04/20 15:30 01/06/20 09:03 Normal Saline 0.9% IV Not Given .[id number] HEMANT Cefepime HCl 2 gm/ Sodium 100 mls @ 200 mls/hr 01/04/20 21:00 01/06/20 08:14 Chloride IVPB 100 mls Q12HR HEMANT Administration Naproxen 500 mg 01/04/20 15:23 01/04/20 16:28 Naproxen 500 Mg Tab PO 500 mg BIDPRN PRN Administration Moderate to Severe Pain (6-10) Pantoprazole Sodium 40 mg 01/05/20 09:00 01/06/20 08:16 Pantoprazole 40 Mg Tab PO 40 mg DAILY HEMANT Administration Polyethylene Glycol 17 gm 01/04/20 09:00 01/06/20 08:16 Polyethylene Glycol 3350 17 Gm Packet PO 17 gm DAILY HEMANT Administration Sodium Chloride 10 ml 01/04/20 09:00 01/06/20 08:16 Flush - Normal Saline 10 Ml Syringe IVF Not Given Q12HR HEMANT Sodium Chloride 10 ml 01/03/20 21:45 01/04/20 16:03 Flush - Normal Saline 10 Ml Syringe IVF 10 ml PRN PRN Administration Saline Flush - Exam General Appearance: awake alert Neck: supple, no JVD Respiratory: normal chest expansion, no tachypnea Extremities: no cyanosis, no clubbing, no edema Neurological: cranial nerve grossly intact, no focal deficits Psychiatric: A&O x 3 Hosp A/P (1) Sepsis Code(s): A41.9 - SEPSIS, UNSPECIFIED ORGANISM Status: Acute (2) Cavitary pneumonia Code(s): J18.9 - PNEUMONIA, UNSPECIFIED ORGANISM; J98.4 - OTHER DISORDERS OF LUNG Status: Acute (3) Pseudomonas infection Code(s): A49.8 - OTHER BACTERIAL INFECTIONS OF UNSPECIFIED SITE Status: Acute (4) Multiple sclerosis Code(s): G35 - MULTIPLE SCLEROSIS Status: Acute (5) Pelvic mass Code(s): R19.00 - INTRA-ABD AND PELVIC SWELLING, MASS AND LUMP, UNSP SITE Status: Acute (6) Liver mass Code(s): R16.0 - HEPATOMEGALY, NOT ELSEWHERE CLASSIFIED Status: Acute - Plan Sepsis due to Pseudomonas cavitary pneumonia present on admission. Currently on cefepime. ID recommended transitioning to ciprofloxacin prior to discharge. The patient is allergic to levofloxacin is likely not real. Leukocytosis improving. Complex pelvic mass and liver mass. Status post COAL LOADER evaluation. Refer to their notes for further details. Outpatient follow-up recommended.
[2020-01-06] MEDS: Enoxaparin Sodium 40 MG/0.4 ML SYRINGE SC SCH (21:20)
[2020-01-07] MEDS: Guaifenesin DM 100-10/5 ML UDCUP PO PRN ×3 (02:30→21:03)
[2020-01-07] MEDS: Sodium Chloride 0.9% 1,000 ML IV SCH ×2 (02:32→13:35)
[2020-01-07] MEDS: Cefepime 2 GM in Sodium Chloride 0.9% 100 ML IVPB SCH ×2 (09:16→21:03)
[2020-01-07] MEDS: Polyethylene Glycol 3350 17 GM Packet PO SCH (09:18)
--- NOTE | 2020-01-07 10:22 | RAD ---
2 VIEWS CHEST: Date: 01/07/2020 COMPARISON: 01/03/2020. HISTORY: Pneumonia. FINDINGS: Two views of the chest show normal sized cardiomediastinal silhouette. There is continued worsening o f the opacity in the right upper lobe consistent with pneumonia. There may be a small left pleural ef fusion. No left-sided infiltrates are seen. The bones are unremarkable. The heart is normal in size. IMPRESSION: 1. Right upper lobe pneumonia. 2. Possible small left pleural effusion. POS: EAA
[2020-01-07] MEDS: Acetaminophen 325 MG TAB PO PRN ×2 (12:02→23:31)
--- NOTE | 2020-01-07 16:19 | PDOC.HOSPP ---
- Subjective Subjective: Seen examined at bedside. Her chest x-ray reviewed. Patient still have a low- grade fever as well complaint of cough. - Objective Vital Signs & Weight: Vital Signs (12 hours) Temp Pulse Resp BP BP Pulse Ox 01/07/20 11:53 99.5 F 88 22 H 116/68 96 01/07/20 08:00 98.8 F 100 20 113/86 96 01/07/20 04:30 99.2 F 88 18 113/69 95 Weight Weight 142 lb I&O: 01/06/20 01/07/20 01/08/20 06:59 06:59 06:59 Intake Total 882 1865 Output Total 1680 1850 Balance -798 15 Result Diagrams: 01/06/20 08:35 01/06/20 08:35 Radiology Reviewed by me: Yes EKG Reviewed by me: Yes Hospitalist ROS - Medication Medications: Active Medications Generic Name Dose Route Start Last Admin Trade Name Freq PRN Reason Stop Dose Admin Acetaminophen 650 mg 01/03/20 21:14 01/07/20 12:02 Acetaminophen 325 Mg Tab PO 650 mg Q4H PRN Administration Headache/Fever/Mild Pain (1-3) Enoxaparin Sodium 40 mg 01/04/20 21:00 01/06/20 21:20 Enoxaparin Sodium 40 Mg/0.4 Ml Syringe SC Not Given 2100 HEMANT Guaifenesin/Dextromethorphan 15 ml 01/03/20 21:14 01/07/20 09:19 Guaifenesin Dm 100-10/5 Ml Udcup PO 15 ml Q4H PRN Administration Cough Cefepime HCl 2 gm/ Sodium 100 mls @ 200 mls/hr 01/04/20 21:00 01/07/20 09:16 Chloride IVPB 100 mls Q12HR HEMANT Administration Naproxen 500 mg 01/04/20 15:23 01/04/20 16:28 Naproxen 500 Mg Tab PO 500 mg BIDPRN PRN Administration Moderate to Severe Pain (6-10) Pantoprazole Sodium 40 mg 01/05/20 09:00 01/07/20 09:18 Pantoprazole 40 Mg Tab PO 40 mg DAILY HEMANT Administration Polyethylene Glycol 17 gm 01/04/20 09:00 01/07/20 09:18 Polyethylene Glycol 3350 17 Gm Packet PO 17 gm DAILY HEMANT Administration Sodium Chloride 10 ml 01/04/20 09:00 01/07/20 09:19 Flush - Normal Saline 10 Ml Syringe IVF Not Given Q12HR HEMANT Sodium Chloride 10 ml 01/03/20 21:45 01/04/20 16:03 Flush - Normal Saline 10 Ml Syringe IVF 10 ml PRN PRN Administration Saline Flush - Exam General Appearance: NAD Eye: PERRL ENT: normocephalic atraumatic Neck: supple, JVD Heart: RRR Respiratory: CTAB Gastrointestinal: soft, non-tender Extremities: no cyanosis, no clubbing, no edema Skin: normal turgor Neurological: cranial nerve grossly intact Musculoskeletal: normal tone Psychiatric: normal affect, normal behavior, A&O x 3 Hosp A/P - Plan 49 years old female who has significant past medical history of multiple sclerosis, admitted for pneumonia PNA - likely d/t microaspiration from recent dental abscess --cont IV Cefepime for now. will transition to Cipro when she is afebrile. Pt is allergic to Levofloxacin. Will need to monitor closely --cont nebs, add mucolytics --Appreciate ID input Pseudomonas bacteremia --rpt culture negative --cont abx as above Hx MS --not in [place], not current on treatment --followed by neurologist in [place] Liver Mass - unclear etiology --check acute hepatic panel, CMP, AFP --doubt hematologinous spread, consider further imaging workup as hospital course warrants Pelvic Mass --appreciate Dr. Willingham input --follow up at [facility] in 1-2 sidra
[2020-01-07] MEDS: guaiFENesin ER 600 MG TAB PO SCH (21:03)
[2020-01-07] MEDS: Enoxaparin Sodium 40 MG/0.4 ML SYRINGE SC SCH (21:07)
[2020-01-08 06:19] LABS: ALT (SGPT) 27 U/L (8-55); AST (SGOT) 22 U/L (5-34); Albumin 2.9 g/dL (3.5-5.0); Alkaline Phosphatase 92 U/L (40-110); Anion Gap 12 mmol/L (10-20); BUN (Urea Nitrogen) 4 mg/dL (7.0-18.7); Bilirubin, Total 0.3 mg/dL (0.2-1.2); CRP (Inflammatory) 7.15 mg/dL (= or < 0.5); Calc. Creatinine Clearance 125 mL/min (70-130); Calcium 8.2 mg/dL (7.8-10.44); Carbon Dioxide 22 mmol/L (22-29); Chloride 106 mmol/L (98-107); Estimated GFR-MDRD Greater than 90; Globulin 2.7 g/dL (2.4-3.5); Glucose 97 mg/dL (70-105); Potassium 3.7 mmol/L (3.5-5.1); Protein, Total 5.6 g/dL (6.0-8.3); Sodium 136 mmol/L (136-145)
[2020-01-08 06:34] LABS: HBCM Index 0.08 S/CO (0-0.79); HBSAg Index 0.22 S/CO (0-0.99); Hep A IgM AB Non-Reactive (NonReactive); Hep A IgM S/CO 0.34 S/CO (0-0.79); Hep B Surf Ag Non-Reactive S/CO (NonReactive); Hep C IgG Ab Non-Reactive (NonReactive); Hep C Index 0.19 S/CO (0-0.79); Hepatitis B Core IgM Abs Non-Reactive (NonReactive)
[2020-01-08] MEDS: Cefepime 2 GM in Sodium Chloride 0.9% 100 ML IVPB SCH ×2 (08:25→20:48)
[2020-01-08] MEDS: Polyethylene Glycol 3350 17 GM Packet PO SCH (08:26)
[2020-01-08] MEDS: guaiFENesin ER 600 MG TAB PO SCH ×2 (08:26→20:48)
--- NOTE | 2020-01-08 14:45 | PRG ---
DATE OF SERVICE: 01/08/2020 OBJECTIVE: VITAL SIGNS: Elaine barahona is afebrile, heart rate 86, respiratory rate 20, oximetry is 96% on room air, and blood pressure 100/66. She has a dry cough. LUNGS: Clear. GENERAL: She is in no distress. She has not had a fever for many days. Temperature maximum going back 4 days is 100.6 and that was on the 25th. Her highest temperature in the last 24 hours is 99.9, which really does not qualify as being a fever and is not surprising given her lung situation. IMPRESSION: Pseudomonas pneumonia with lung abscess. PLAN: Continue antibiotics per Infectious Disease. I do not feel serial chest x-rays are indicated on a frequent basis. Her infiltrate is still present on yesterday's film in the right upper lobe. This will not resolve quickly. Job ID: [id number]
--- NOTE | 2020-01-08 15:15 | MRI ---
MR abdomen with and without IV contrast INDICATION: History of liver lesion, multiple sclerosis, central abdominal pain TECHNIQUE: Multiplanar, multisequence MR images were obtained of the abdomen with and without IV cont rast. Contrast: 20 cc MultiHance. COMPARISON: CT of the abdomen and pelvis dated January 03, 2020 FINDINGS: Liver: There is a 4.9 cm cyst within segment 5 of the right hepatic lobe. There is a 7 mm cyst within the lateral left hepatic lobe. There is an isointense to very mildly hyperintense T2, isointense to mildly hyperintense T1, diminished signal intensity on the out of phase T1 imaging lesion within s egment 5 of the right hepatic lobe. The lesion demonstrates avid somewhat heterogeneous arterial enhancement. No central scar is grossly evident. The lesion fades to background on the remaining the venous and delayed phase images. The lesion measures 3.9 x 3.1 cm on image 27 of series 11. Gallbladder: Normal. Pancreas: Normal. Adrenal glands: Normal. Kidneys: Bilateral renal cysts. No hydronephrosis. Spleen: Normal. Spleen size: 9.5 cm . Lymphadenopathy or free fluid: None Vasculature: Appropriate flow voids are demonstrated. Bowel: Visualized bowel appears within normal limits. Osseous structures: No signal abnormality evident. Incidentals: There are small bilateral pleural effusions. IMPRESSION: 1. Arterial enhancing lesion within segment 5 the right hepatic lobe is suspicious for a hepatic roxane juan francisco. Lesion is fairly isointense to liver parenchyma on the T2 and T1-weighted images but does demonstrate some mild internal fat signal intensity. No central scar is evident to suggest that this lesion reflects an FNH. Other differential considerations for this lesion include slightly atypical hemangioma. As a conservative measure would recommend a follow-up MRI of the abdomen with and without contrast in 3-6 months to document stability. GI consultation for follow-up is recommended. 2. Hepatic and bilateral renal cysts. 3. Small bilateral pleural effusions
--- NOTE | 2020-01-08 15:54 | PDOC.HOSPP ---
- Subjective Subjective: Pt had a Tmax of 99.9, took a Tylenol this morning. She is feeling better, but when she spiked a temp, feel like she is getting sick again. Reports some nonproductive cough - Objective Vital Signs & Weight: Vital Signs (12 hours) Temp Pulse Resp BP Pulse Ox 01/08/20 11:19 98.9 F 01/08/20 08:23 96 01/08/20 07:38 98.3 F 86 20 100/66 96 01/08/20 04:00 98.3 F Weight Weight 142 lb I&O: 01/07/20 01/08/20 01/09/20 06:59 06:59 06:59 Intake Total 1865 320 600 Output Total 1850 Balance 15 320 600 Result Diagrams: 01/06/20 08:35 01/08/20 05:33 Hospitalist ROS - Medication Medications: Active Medications Generic Name Dose Route Start Last Admin Trade Name Freq PRN Reason Stop Dose Admin Acetaminophen 650 mg 01/03/20 21:14 01/07/20 23:31 Acetaminophen 325 Mg Tab PO 650 mg Q4H PRN Administration Headache/Fever/Mild Pain (1-3) Enoxaparin Sodium 40 mg 01/04/20 21:00 01/07/20 21:07 Enoxaparin Sodium 40 Mg/0.4 Ml Syringe SC Not Given 2100 HEMANT Guaifenesin 600 mg 01/07/20 21:00 01/08/20 08:26 Guaifenesin Er 600 Mg Tab PO 600 mg Q12HR HEMANT Administration Guaifenesin/Dextromethorphan 15 ml 01/03/20 21:14 01/07/20 21:03 Guaifenesin Dm 100-10/5 Ml Udcup PO 15 ml Q4H PRN Administration Cough Cefepime HCl 2 gm/ Sodium 100 mls @ 200 mls/hr 01/04/20 21:00 01/08/20 08:25 Chloride IVPB 100 mls Q12HR HEMANT Administration Naproxen 500 mg 01/04/20 15:23 01/04/20 16:28 Naproxen 500 Mg Tab PO 500 mg BIDPRN PRN Administration Moderate to Severe Pain (6-10) Pantoprazole Sodium 40 mg 01/05/20 09:00 01/08/20 08:26 Pantoprazole 40 Mg Tab PO 40 mg DAILY HEMANT Administration Polyethylene Glycol 17 gm 01/04/20 09:00 01/08/20 08:26 Polyethylene Glycol 3350 17 Gm Packet PO 17 gm DAILY HEMANT Administration Sodium Chloride 10 ml 01/04/20 09:00 01/08/20 08:26 Flush - Normal Saline 10 Ml Syringe IVF Not Given Q12HR HEMANT Sodium Chloride 10 ml 01/03/20 21:45 01/04/20 16:03 Flush - Normal Saline 10 Ml Syringe IVF 10 ml PRN PRN Administration Saline Flush Hosp A/P - Plan - Exam General Appearance: NAD Eye: PERRL ENT: normocephalic atraumatic Neck: supple, JVD Heart: RRR Respiratory: CTAB Gastrointestinal: soft, non-tender Extremities: no cyanosis, no clubbing, no edema Skin: normal turgor Neurological: cranial nerve grossly intact Musculoskeletal: normal tone Psychiatric: normal affect, normal behavior, A&O x 3 49 years old female who has significant past medical history of multiple sclerosis, admitted for pneumonia PNA - likely d/t microaspiration from recent dental abscess --cont IV Cefepime for now. will transition to Cipro when she is afebrile. Pt is allergic to Levofloxacin. Will need to monitor closely prior to d/c --cont nebs, add mucolytics --Appreciate ID input Pseudomonas bacteremia --rpt culture negative --cont abx as above Hx MS --not in [place], not current on treatment Liver Mass - unclear etiology --acute hep panel and AFP were negative --given reccurent fever, will check MRI abd to r/o abscess Pelvic Mass --appreciate Dr. Willingham input --follow up at [facility] in 1-2 sidra
[2020-01-08] MEDS ORDERED: Magnevist 469MG/ML 20 ML VIAL ONE (16:22)
[2020-01-08] MEDS: Enoxaparin Sodium 40 MG/0.4 ML SYRINGE SC SCH (20:39)
[2020-01-08] MEDS: Guaifenesin DM 100-10/5 ML UDCUP PO PRN (20:48)
[2020-01-09] MEDS ORDERED: diphenhydrAMINE 25 MG CAP PO SCH (03:30)
[2020-01-09] MEDS ORDERED: Ciprofloxacin 500 MG TAB PO SCH (08:00)
[2020-01-09] MEDS: guaiFENesin ER 600 MG TAB PO SCH ×2 (09:02→22:05)
[2020-01-09] MEDS: Polyethylene Glycol 3350 17 GM Packet PO SCH (09:02)
--- NOTE | 2020-01-09 17:41 | PRG ---
DATE OF SERVICE: 01/09/2020 SUBJECTIVE: Feeling good, tried Cipro without problems. Probably ready to go by tomorrow. OBJECTIVE: VITAL SIGNS: She is afebrile. LUNGS: Sound great. CARDIAC: S1 and S2, regular rate. ABDOMEN: Soft. LABORATORY DATA: White cell count last checked about 3 days ago was 11.2 and chemistry was okay. CRP was still high at 7.15. She had an abdomen MRI to check her hepatic mass and it showed hepatic adenoma or hemangioma. Recommendation is for followup MRI in 3 to 6 months to document stability and GI consultation. ASSESSMENT AND DISCUSSION: Multiple sclerosis, previously on Copaxone and Betaseron, not on treatment for a while. Corticosteroid use in the past for management of cervical spinal disease and recent tooth abscess, managed with oral antimicrobials. Pseudomonas aeruginosa pneumonia with small area of necrosis in the right upper lobe. The patient has responded well to cefepime and now has tolerated Cipro, ready for discharge on Cipro. Total duration of therapy is around 21 days up to 42. Endpoint will be improvement on x-ray and resolution of the inflammatory markers, CRP, and WBC count. Job ID: [id number]
--- NOTE | 2020-01-09 18:49 | PDOC.HOSPP ---
- Subjective Subjective: feeling well afebrile. MRI abd reviewed with pt. transition to PO Cipro - Objective Vital Signs & Weight: Vital Signs (12 hours) Temp Pulse Resp BP Pulse Ox 01/09/20 12:00 98.0 F 96 18 96/66 96 01/09/20 08:00 98.9 F 82 16 100/68 97 Weight Weight 142 lb I&O: 01/08/20 01/09/20 01/10/20 06:59 06:59 06:59 Intake Total 320 1630 480 Balance 320 1630 480 Result Diagrams: 01/06/20 08:35 01/08/20 05:33 Hospitalist ROS - Medication Medications: Active Medications Generic Name Dose Route Start Last Admin Trade Name Freq PRN Reason Stop Dose Admin Acetaminophen 650 mg 01/03/20 21:14 01/07/20 23:31 Acetaminophen 325 Mg Tab PO 650 mg Q4H PRN Administration Headache/Fever/Mild Pain (1-3) Enoxaparin Sodium 40 mg 01/04/20 21:00 01/08/20 20:39 Enoxaparin Sodium 40 Mg/0.4 Ml Syringe SC Not Given 2100 HEMANT Guaifenesin 600 mg 01/07/20 21:00 01/09/20 09:02 Guaifenesin Er 600 Mg Tab PO 600 mg Q12HR HEMANT Administration Guaifenesin/Dextromethorphan 15 ml 01/03/20 21:14 01/08/20 20:48 Guaifenesin Dm 100-10/5 Ml Udcup PO 15 ml Q4H PRN Administration Cough Naproxen 500 mg 01/04/20 15:23 01/04/20 16:28 Naproxen 500 Mg Tab PO 500 mg BIDPRN PRN Administration Moderate to Severe Pain (6-10) Pantoprazole Sodium 40 mg 01/05/20 09:00 01/09/20 09:02 Pantoprazole 40 Mg Tab PO 40 mg DAILY HEMANT Administration Polyethylene Glycol 17 gm 01/04/20 09:00 01/09/20 09:02 Polyethylene Glycol 3350 17 Gm Packet PO Not Given DAILY HEMANT Sodium Chloride 10 ml 01/04/20 09:00 01/09/20 09:02 Flush - Normal Saline 10 Ml Syringe IVF Not Given Q12HR HEMANT Sodium Chloride 10 ml 01/03/20 21:45 01/04/20 16:03 Flush - Normal Saline 10 Ml Syringe IVF 10 ml PRN PRN Administration Saline Flush Hosp A/P - Plan - Exam General Appearance: NAD Eye: PERRL ENT: normocephalic atraumatic Neck: supple, JVD Heart: RRR Respiratory: CTAB Gastrointestinal: soft, non-tender Extremities: no cyanosis, no clubbing, no edema Skin: normal turgor Neurological: cranial nerve grossly intact Musculoskeletal: normal tone Psychiatric: normal affect, normal behavior, A&O x 3 49 years old female who has significant past medical history of multiple sclerosis, admitted for pneumonia PNA - likely d/t microaspiration from recent dental abscess --transition to Cipro when she is afebrile. Pt is allergic to Levofloxacin. Will need to monitor closely prior to d/c --cont nebs, add mucolytics --Appreciate ID input --Home in AM if tolerates Cipro x 21-42 days, until antiinflammatory markers completely normalized Pseudomonas bacteremia --rpt culture negative --cont abx as above Hx MS --not in exac, not current on treatment Liver Mass - unclear etiology --acute hep panel and AFP were negative --MRI suggestive of adenoma, follow up outpatient, rpt image in 3-6 months, discussed with pt Pelvic Mass --appreciate Dr. Willingham input --follow up at [facility] in 1-2 sidra
[2020-01-09] MEDS: Acetaminophen 325 MG TAB PO PRN (22:04)
[2020-01-09] MEDS: Ciprofloxacin 500 MG TAB PO SCH (22:05)
[2020-01-09] MEDS: Enoxaparin Sodium 40 MG/0.4 ML SYRINGE SC SCH (22:07)
[2020-01-10 06:01] LABS: #Basophils 0.1 thou/uL (0.0-0.2); #Eosinphils 0.4 thou/uL (0.0-0.7); #Lymphocytes 2.1 thou/uL (1.20-3.40); #Monocytes 0.8 thou/uL (0.11-0.59); #Neutrophils 7.5 thou/uL (1.40-6.50); %Basophils 0.6 % (0.0-1.0); %Eosinophils 3.9 % (0.0-10.0); %Lymphocytes 19.6 % (21.0-51.0); %Monocytes 7.1 % (0.0-10.0); %Neutrophils 68.8 % (42.0-75.0); Hemoglobin 11.3 g/dL (12.0-16.0); Mean Corpuscular HGB CONC 30.7 g/dL (32.0-36.0); Mean Corpuscular Hemoglobin 29.1 pg (27.0-31.0); Mean Corpuscular Volume 94.6 fL (78.0-98.0); Mean Platelet Volume 6.2 fL (7.4-10.4); Platelet Count 533 thou/uL (130-400); RBC Distribution Width 11.9 % (11.5-14.5); Red Blood Cell (RBC) Count 3.88 mill/uL (4.20-5.40); White Blood Cell (WBC) Count 10.8 thou/uL (4.8-10.8)
[2020-01-10 06:20] LABS: Anion Gap 12 mmol/L (10-20); BUN (Urea Nitrogen) 5 mg/dL (7.0-18.7); Calc. Creatinine Clearance 106 mL/min (70-130); Calcium 8.4 mg/dL (7.8-10.44); Carbon Dioxide 26 mmol/L (22-29); Chloride 103 mmol/L (98-107); Estimated GFR-MDRD Greater than 90; Glucose 101 mg/dL (70-105); Potassium 3.9 mmol/L (3.5-5.1); Sodium 137 mmol/L (136-145)
[2020-01-10] MEDS: Ciprofloxacin 500 MG TAB PO SCH (07:32)
[2020-01-10] MEDS: guaiFENesin ER 600 MG TAB PO SCH (08:57)
[2020-01-10] MEDS: Polyethylene Glycol 3350 17 GM Packet PO SCH (08:58)
[2020-01-10 12:02] VITALS: BP 98/69; TEMP 98
--- NOTE | 2020-01-11 07:49 | DIS ---
DATE OF ADMISSION: 01/03/2020 DATE OF DISCHARGE: 01/10/2020 DISCHARGE DIAGNOSES: 1. Pseudomonas pneumonia with a small area of necrosis. 2. History of multiple sclerosis. 3. Incidental finding of liver mass. Magnet resonance imaging showed adenoma versus hemangioma. 4. Incidental findings of a pelvic mass. Follow up with [facility], Dr. Tolentino in 1 to 2 months. CONSULTATIONS: 1. Infectious Disease, Dr. Oneal. 2. Pulmonology, Dr. Tucker. 3. [facility], Dr. Tolentino. PROCEDURES: None. LABORATORY DATA: WBC on admission was 16.1 and at the time of discharge was 10.8, hemoglobin 11.3, hematocrit 36.7, platelets 533. Chemistry: Sodium 137, potassium 3.9, chloride is 103, carbon dioxide 26, BUN 12, creatinine 0.66. CRP went from 7.15 to 3.4 at discharge. CA-125 of 38.1. Tumor marker AFP less than 2. ESR went from 70 to 67. Acute hepatitis panel nonreactive. IMAGING: Abdominal MRI, arterial enhancing lesions within segment 5. The right hepatic lobe is suspicious for hepatic adenoma. Lesion is fairly isointense to the liver parenchyma on the T2 and T1 weighted image, but does demonstrate some mild internal fat signal intensity. Other differential including atypical hemangioma. Pelvic ultrasound finding favoring complex physiologic cyst involving left ovary. Sonographic followup is recommended to evaluate for resolution. CT abdomen and pelvis, suspect for 6 cm complex cystic pelvic mass. Mild free pelvic fluid. 3.6 enhancing right hepatic lobe mass, incompletely characterized on the basis of this study. HISTORY OF PRESENT ILLNESS AND BRIEF HOSPITAL COURSE: The patient is a very pleasant 49-year-old female, who has significant past medical history of multiple sclerosis, she was previously on Copaxone and Betaseron, she currently in remission and not on any medication at present. About a week ago, patient developed some worsening of her shoulder pain and some productive cough. She was evaluated in the ED, showed that she had a right upper lobe infiltrate. CT scan showed cavitary infiltrate and she was subsequently referred to Pulmonology office. Her blood culture also came back positive for Pseudomonas. Apparently, patient has been dealing with tooth abscess. She was subsequently admitted to the hospital for further workup. The patient was started on empiric antibiotic with cefepime. Her blood culture was repeated, had no growth. Infectious Disease was consulted. The patient was seen by Dr. Oneal. Thought that her pneumonia is likely due to aspiration from tooth abscess. She was on antibiotics for about 3 to 4 weeks ago. She had a CT abdomen and pelvis done, there was incidental findings of pelvic mass as well as liver mass. [facility] was consulted. The patient was seen by Dr. Tolentino. Recommend follow up at outpatient in 1 to 2 months. Additionally, she had a 3 cm mass on her right hepatic lobe. For that reason, MRI of the abdomen was done, so likely due to adenoma versus atypical hemangioma. The results have been discussed with the patient. Recommend to follow up as outpatient. We will need to repeat imaging study in about 3 to 6 months. Repeated chest x-ray for her pneumonia appears to be stable. She had been on room air. She is feeling well. She had no further fever. ID recommended transition her to oral antibiotics. The patient had history of Levaquin allergy. For that reason, Dr. Oneal recommended to start her on Cipro for her Pseudomonas infections, and monitor her closely while in the hospital and make sure that she tolerates it before she gets discharged. Her fever has resolved as well as her leukocytosis. Her sed rate, CRP are trending down. Dr. Oneal recommended a total of 21 days or up to 42 days. The end point depends on improvement on the chest x-ray and resolution of inflammatory marker, CRP/sed rate. The plan of care discussed with the patient as well as her on the phone. The patient to follow up with Pulmonology as outpatient and repeat chest x-ray to document complete resolution of her pneumonia. She will continue with antibiotics, Cipro 500 mg b.i.d. for 21 day, and up to 42 days as mentioned above. She will need to follow up with her PCP regarding incidental findings on her hepatic mass. She will follow up with Dr. Tolentino with regard to the pelvic mass as well. ACTIVITY: As tolerated. DIET: Regular. PHYSICAL EXAMINATION: VITAL SIGNS: Temperature is 98.8, pulse 82, respiratory rate , she is satting 97% on room air, blood pressure is 106/71. GENERAL APPEARANCE: Patient appears to be comfortable. She is not in acute distress. HEENT: Normocephalic, atraumatic. Mucous membranes moist. NECK: Supple. No lymphadenopathy. No JVD. CARDIOVASCULAR: Regular rate and rhythm. S1, S2 noted. No murmur. PULMONOLOGY: Clear to auscultation bilaterally. ABDOMEN: Soft, nontender, nondistended. Positive bowel sounds. MUSCULOSKELETAL: No joint pain or tenderness. No edema. NEUROLOGIC: Cranial nerves II through XII grossly intact. No focal weakness. PSYCHIATRIC: The patient is alert, oriented x3 with normal affect. DISCHARGE MEDICATION: Cipro 500 mg b.i.d. x21 day, duration of antibiotic may need to be extended based on her markers and chest x-ray per ID. The patient was also recommended to take probiotic to avoid antibiotic associated diarrhea. Thank you for allowing us to participate in this patient's care. DISCHARGE TIME SPENT: 35 minutes. Job ID: [id number]
== END 2020-01-10 14:49 | disposition home or self-care (01) | DRG 871 ==
LOC: ERS 15:26 → 3SE 19:42 → T4-B 01-07 15:00
PROVIDERS: ADMIT Internal Medicine; ATTEND Internal Medicine
DX: A41.52 Sepsis due to Pseudomonas (principal); J85.1 Abscess of lung with pneumonia; J69.0 Pneumonitis due to inhalation of food and vomit; J15.1 Pneumonia due to Pseudomonas; G35 Multiple sclerosis; R19.09 Other intra-abdominal and pelvic swelling, mass and lump; G89.29 Other chronic pain; M54.9 Dorsalgia, unspecified; K04.7 Periapical abscess without sinus; R16.0 Hepatomegaly, not elsewhere classified; Z98.51 Tubal ligation status; Z90.710 Acquired absence of both cervix and uterus; Z79.899 Other long term (current) drug therapy; Z88.1 Allergy status to other antibiotic agents; Z88.5 Allergy status to narcotic agent; Z88.0 Allergy status to penicillin; Z88.8 Allergy status to other drugs, medicaments and biological substances; Z90.721 Acquired absence of ovaries, unilateral; Z90.49 Acquired absence of other specified parts of digestive tract
CPT/HCPCS: 36415; 36416; 71045; 71046; 74177; 74183; 76856; 80048; 80053; 80074; 81001; 82105; 83605; 83690; 83735; 85025; 85652; 86140; 86304; 87040; 87070; 87086; 87205; 96361; 96365; A9579; J0692; J1650; J2185; J3475; J3490; Q0163; Q9967

== ENCOUNTER 2020-01-18 12:06 | Outpatient (CLI) | payer OTHER ==
--- NOTE | 2020-01-18 14:06 | RAD ---
PA AND LATERAL VIEWS CHEST: Date: 01/18/2020 HISTORY: Dyspnea. Pneumonia. FINDINGS: Comparison made with exam of 01/07/2020. There is cavitation noted in the right upper lobe air space opacity noted on the exam of 01/07/2020. The heart size is normal. The left lung is clear. No pleural effusions or pneumothoraces are seen. IMPRESSION: Right upper lobe cavitary mass. Further evaluation with CT scan is recommended. POS: [facility]
== END 2020-01-18 12:07 | disposition home or self-care (01) ==
LOC: BICRAD 12:06
PROVIDERS: ATTEND Internal Medicine Pulmonary Disease
DX: R06.00 Dyspnea, unspecified (principal); R91.8 Other nonspecific abnormal finding of lung field
CPT/HCPCS: 71046

== ENCOUNTER 2020-02-14 12:00 | Outpatient (CLI) | payer OTHER ==
--- NOTE | 2020-02-14 13:09 | RAD ---
CHEST 2 VIEWS; Date: 02/14/2020 HISTORY: Pneumonia. COMPARISON: Radiograph dated 01/18/2020. FINDINGS: The right upper lobe cavity is slightly decreased in size, now measuring up to 2.8 cm, previously 4.0 cm. Remainder of lungs relatively clear. No pneumothorax. No effusion. IMPRESSION: Size decrease in right upper lobe cavitation. POS: [facility]
== END 2020-02-14 12:01 | disposition home or self-care (01) ==
LOC: BICRAD 12:00
PROVIDERS: ATTEND Internal Medicine Pulmonary Disease
DX: R06.00 Dyspnea, unspecified (principal); A15.0 Tuberculosis of lung
CPT/HCPCS: 71046

== ENCOUNTER 2020-03-21 12:05 | Outpatient (CLI) | payer OTHER ==
--- NOTE | 2020-03-21 13:46 | RAD ---
TWO VIEWS OF THE CHEST: 03/21/20 COMPARISON: 02/14/20 HISTORY: Dyspnea. FINDINGS: Two views of the chest shows a normal sized cardiomediastinal silhouette. There is scarring in the ri ght apex. There is no evidence of consolidation, mass, or pleural effusion. The bones are unremarkabl e. IMPRESSION: No evidence of acute cardiopulmonary disease. POS: [facility]
== END 2020-03-21 12:06 | disposition home or self-care (01) ==
LOC: BICRAD 12:05
PROVIDERS: ATTEND Internal Medicine Pulmonary Disease
DX: R06.00 Dyspnea, unspecified (principal)
CPT/HCPCS: 71046

== ENCOUNTER 2020-05-08 12:33 | Emergency (ER) | payer SELFPAY ==
--- NOTE | 2020-05-08 13:46 | RAD ---
EXAM: XR Chest 1 View Portable PROVIDED CLINICAL HISTORY: Cough COMPARISON: 03/21/2020 FINDINGS: Cardiac and mediastinal silhouette is within normal limits. Scattered patchy foci of parenchymal opac ities are noted involving both lower lung zones. No pleural fluid or pneumothorax apparent. IMPRESSION: Bilateral lower lung zone airspace disease, correlate for pneumonia.
[2020-05-08 13:47] LABS: #Basophils 0.1 thou/uL (0.0-0.2); #Lymphocytes 1.3 thou/uL (1.20-3.40); #Monocytes 0.4 thou/uL (0.11-0.59); #Neutrophils 2.5 thou/uL (1.40-6.50); %Basophils 1.3 % (0.0-1.0); %Eosinophils 0.1 % (0.0-10.0); %Lymphocytes 30.9 % (21.0-51.0); %Monocytes 10.2 % (0.0-10.0); %Neutrophils 57.6 % (42.0-75.0); Hemoglobin 13.3 g/dL (12.0-16.0); Mean Corpuscular HGB CONC 33.7 g/dL (32.0-36.0); Mean Corpuscular Hemoglobin 30.1 pg (27.0-31.0); Mean Corpuscular Volume 89.3 fL (78.0-98.0); Mean Platelet Volume 7.3 fL (7.4-10.4); Platelet Count 216 thou/uL (130-400); Red Blood Cell (RBC) Count 4.42 mill/uL (4.20-5.40); White Blood Cell (WBC) Count 4.3 thou/uL (4.8-10.8)
[2020-05-08 14:08] LABS: ALT (SGPT) 14 U/L (8-55); AST (SGOT) 17 U/L (5-34); Albumin 3.5 g/dL (3.5-5.0); Alkaline Phosphatase 62 U/L (40-110); Anion Gap 9 mmol/L (10-20); BUN (Urea Nitrogen) 12 mg/dL (7.0-18.7); Bilirubin, Total Less than 0.2 mg/dL (0.2-1.2); Calc. Creatinine Clearance 0 mL/min (70-130); Calcium 8.3 mg/dL (7.8-10.44); Carbon Dioxide 30 mmol/L (22-29); Chloride 103 mmol/L (98-107); Globulin 2.6 g/dL (2.4-3.5); Glucose 89 mg/dL (70-105); Potassium 3.5 mmol/L (3.5-5.1); Protein, Total 6.1 g/dL (6.0-8.3); Sodium 138 mmol/L (136-145)
[2020-05-08] MEDS ORDERED: Dexamethasone 4 MG TAB ONE (14:42)
[2020-05-08 20:43] LABS: SARS-CoV-2 PCR by NAA DETECTED (NotDetected)
== END 2020-05-08 14:50 | disposition home or self-care (01) ==
LOC: ERS 12:33
DX: U07.1 COVID-19 (principal); J12.82 Pneumonia due to coronavirus disease 2019
CPT/HCPCS: 36415; 71045; 80053; 84484; 85025; 87635; 93005; J8540; U0003; U0005

== ENCOUNTER 2020-06-27 12:20 | Outpatient (CLI) | payer OTHER | END 2020-06-27 12:21 | disposition home or self-care (01) | LOC: BICRAD 12:20 | PROVIDERS: ATTEND Internal Medicine Pulmonary Disease | DX: R06.00 Dyspnea, unspecified (principal); J43.9 Emphysema, unspecified | CPT/HCPCS: 71046 ==